=== PATIENT | female | born 1990 | race Caucasian/White ===

== ENCOUNTER 2019-11-22 03:13 | Emergency (ER) | payer SELFPAY ==
[~2019-11-22] VITALS: Ht 167.6 cm; Wt 84.1 kg
[2019-11-22 03:29] VITALS: BP 105/76; Ht 167.6 cm; Wt 84.1 kg
[2019-11-22] MEDS ORDERED: LEXAPRO20 MG PO (03:30)
[2019-11-22] MEDS ORDERED: ADDERALL XR 2020 MG PO (03:30)
[2019-11-22] MEDS ORDERED: GABAPENTIN300 MG PO (03:30)
[2019-11-22] MEDS ORDERED: AUGMENTIN 875-11 TAB PO (03:41)
== END 2019-11-22 04:19 | disposition home or self-care (01) ==
LOC: D.ER 03:13
DX: S61.452A Open bite of left hand, initial encounter (principal); W54.0XXA Bitten by dog, initial encounter; Y93.9 Activity, unspecified; Y92.9 Unspecified place or not applicable